=== PATIENT | male | born 1960 | race Caucasian/White ===

== ENCOUNTER 2020-09-16 14:55 | Outpatient (CLI) | payer OTHER ==
--- NOTE | 2020-09-16 15:35 | RAD ---
EXAM: Lumbar spine 6 views including flexion and extension lateral views and oblique views HISTORY: Acute left-sided low back pain and left-sided sciatica COMPARISON: 09/20/2014 FINDINGS: Mild generalized disc osteophytosis and facet arthrosis, somewhat progressive from prior study. No evidence for acute fracture or dislocation or significant acute osseous process. Alignment:No significant malalignment. No evidence for a focal bone lesion. IMPRESSION: No significant acute process.
== END 2020-09-16 14:56 | disposition home or self-care (01) ==
LOC: BICRAD 14:55
PROVIDERS: ATTEND Internal Medicine
DX: M54.42 Lumbago with sciatica, left side (principal)
CPT/HCPCS: 72100